=== PATIENT | male | born 1935 | race Caucasian/White ===

== ENCOUNTER 2019-06-21 13:06 | Inpatient (IN) | payer MEDICARE, OTHER ==
[~2019-06-21] VITALS: Ht 180.3 cm; Wt 81.8 kg
[~2019-06-21 13:06] MED LIST: DOCU-28 PO; NAPR-1154 PO
[2019-06-21 14:49] LABS: CLARITY,URINE CLEAR (Clear); COLOR,URINE STRAW (Yellow); GLUCOSE, URINE NEGATIVE (Neg); KETONES,URINE NEGATIVE (Neg); LEUKOCYTE ESTERASE ,URINE NEGATIVE (Neg); NITRITES, URINE NEGATIVE (Neg); OCCULT BLOOD,URINE TRACE-INTACT (Neg); PROTEIN,URINE 100 mg/dl (Neg); UROBILINOGEN,URINE 0.2 E.U/dL (0.2-1.0)
[2019-06-21 14:51] LABS: UA COLLECTION TYPE URINAL
[2019-06-21 14:58] LABS: BACTERIA,URINE NONE SEEN /HPF (Neg); RBC,URINE 0-2 /HPF (0-2); SQUAMOUS EPITHELIAL CELL,UR NONE SEEN /LPF (FEW); WBC,URINE NONE SEEN /HPF (0-4)
[2019-06-21 14:59] LABS: MUCUS STRANDS NONE SEEN /LPF (Neg)
[2019-06-21] MEDS ORDERED: normal saline 1000ML IV soln IVB ONE (15:55)
[2019-06-21 16:19] LABS: BASOPHILS # (AUTO) 0.1 X10'3 (0-0.2); BASOPHILS % (AUTO) 1.3 % (0-1); EOSINOPHILS # (AUTO) 0.2 X10'3 (0-0.9); HEMATOCRIT 43.8 % (42.0-52.0); LYMPHOCYTES # (AUTO) 2.4 X10'3 (1.1-4.8); LYMPHOCYTES % (AUTO) 34.3 % (21-51); MEAN CORPUSCULAR HEMOGLOBIN 31.5 PG (27.0-31.0); MEAN CORPUSCULAR HGB CONC 34.2 g/dL (33.0-36.5); MEAN PLATELET VOLUME 7.5 FL (7.4-10.4); MONOCYTES # (AUTO) 0.7 X10'3 (0-0.9); MONOCYTES % (AUTO) 9.7 % (2-12); NEUTROPHILS # (AUTO) 3.5 X10'3 (1.8-7.7); NEUTROPHILS % (AUTO) 51.7 % (42-75); PLATELET COUNT 314 X10'3 (140-440); RED BLOOD COUNT 4.76 X10'6 (4.70-6.10); RED CELL DISTRIBUTION WIDTH 12.9 % (11.5-14.5); WHITE BLOOD COUNT 6.9 X10'3 (4.5-11.0)
[2019-06-21] MEDS: diatr meglu/diatrizoate 30ml oral sol.-(3 dose) bottle PO SCH ×3 (16:19→17:47)
[2019-06-21 16:36] LABS: ALANINE AMINOTRANSFERASE 30 U/L (12-78); ALBUMIN 2.9 G/DL (3.4-5.0); ALBUMIN/GLOBULIN RATIO 0.8 (1.1-1.5); ALKALINE PHOSPHATASE 58 IU/L (46-116); ANION GAP 6 (8-16); ASPARTATE AMINO TRANSFERASE 24 U/L (10-37); BILIRUBIN,TOTAL 0.6 MG/DL (0.1-1.0); BLOOD UREA NITROGEN 18 MG/DL (7-18); BUN/CREATININE RATIO 14.6 (5.4-32.0); CALCIUM 8.7 MG/DL (8.5-10.1); CHLORIDE 105 MMOL/L (99-107); CREATININE 1.23 MG/DL (0.60-1.10); GLUCOSE 129 MG/DL (70-104); LIPASE 165 U/L (73-393); MAGNESIUM 1.9 MG/DL (1.5-2.4); POTASSIUM 3.9 MMOL/L (3.5-5.1); SODIUM 139 MMOL/L (135-145); TOTAL CARBON DIOXIDE 28.5 MMOL/L (24-32); TOTAL PROTEIN 6.4 G/DL (6.4-8.2); eGFR 56 ML/MIN
[2019-06-21] MEDS ORDERED: iohexol 300mg/ml 100ml inj. ONE (17:56)
[2019-06-21] MEDS ORDERED: GLIM2TAB3 PO (19:11)
[2019-06-21] MEDS ORDERED: OMEP-50 PO (19:11)
[2019-06-21] MEDS ORDERED: PEG 3350/Na sulf,bicarb,Cl/KCl oral sol 4 liter bottle PO ONE (20:05)
[2019-06-21] MEDS ORDERED: magnesium 2GM in 50ml NS 50 ML IV PRN (20:25)
[2019-06-21] MEDS ORDERED: HYDROcodone/acetaminophen 5mg/325mg tablet PO PRN (20:25)
[2019-06-21] MEDS ORDERED: mag hydrox/Alum hydrox/simeth 30ml oral suspension PO PRN (20:25)
[2019-06-21] MEDS ORDERED: magnesium hydroxide 30ml (MOM) UD suspension PO PRN (20:25)
[2019-06-21] MEDS ORDERED: potassium CL 10mEq/100ml bag 100 ML IV PRN ×2 (20:25)
[2019-06-21] MEDS ORDERED: ondansetron/PF 4mg/2ml inj IV PRN (20:25)
[2019-06-21] MEDS ORDERED: HYDROcodone/acetaminophen 10/325mg tab PO PRN (20:25)
[2019-06-21] MEDS ORDERED: acetaminophen 325mg tablet PO PRN ×2 (20:25)
[2019-06-21] MEDS ORDERED: magnesium Cl slow-release 64mg tablet PO PRN (20:25)
[2019-06-21] MEDS ORDERED: morphine 2 MG/ML inj. syringe IV PRN ×2 (20:25)
[2019-06-21] MEDS ORDERED: magnesium 4gm in 100ml NS 100 ML IV PRN (20:25)
[2019-06-21] MEDS ORDERED: potassium Cl 20 mEq SR tablet PO PRN ×2 (20:25)
[2019-06-21] MEDS: normal saline 1000ml 1,000 ML IV SCH (20:39)
[2019-06-21 21:36] VITALS: BP 128/83
--- NOTE | 2019-06-21 21:36 | NUR ---
pt arrived to floor, VSS, in no apparent distress. ambulated self from gurney to bed. Golytely at bedside. BLL, 2x rails up, call light in reach, will continue to monitor
[2019-06-22] VITALS (11 sets, daily range): BP systolic 103–158; BP diastolic 60–85
[2019-06-22] MEDS ORDERED: MESSAGE TO PHARMACY PO ONE (01:40)
[2019-06-22] MEDS ORDERED: glucagon, human recombinant 1mg kit SUBCUT PRN (01:40)
[2019-06-22] MEDS ORDERED: dextrose 50%-water 50ml dispensing syringe IV PRN ×2 (01:40)
[2019-06-22] MEDS ORDERED: dextrose ORAL solution 15 GM/59 ML bottle PO PRN ×2 (01:40)
[2019-06-22] MEDS ORDERED: insulin Lispro (HumaLOG) vial - multi-dose SQ SCH (01:40)
[2019-06-22] MEDS: normal saline 1000ml 1,000 ML IV SCH (06:22)
--- NOTE | 2019-06-22 06:25 | NUR ---
report given to MIREYA Conklin
[2019-06-22 07:14] LABS: BASOPHILS # (AUTO) 0.1 X10'3 (0-0.2); BASOPHILS % (AUTO) 1.1 % (0-1); EOSINOPHILS # (AUTO) 0.2 X10'3 (0-0.9); EOSINOPHILS % (AUTO) 3.8 % (0-6); HEMATOCRIT 40.1 % (42.0-52.0); HEMOGLOBIN 13.5 g/dl (14.0-17.9); LYMPHOCYTES # (AUTO) 2.4 X10'3 (1.1-4.8); MEAN CORPUSCULAR HEMOGLOBIN 31.4 PG (27.0-31.0); MEAN CORPUSCULAR HGB CONC 33.7 g/dL (33.0-36.5); MEAN CORPUSCULAR VOLUME 93.2 FL (78-98); MEAN PLATELET VOLUME 8.1 FL (7.4-10.4); MONOCYTES # (AUTO) 0.6 X10'3 (0-0.9); NEUTROPHILS # (AUTO) 2.5 X10'3 (1.8-7.7); NEUTROPHILS % (AUTO) 44.1 % (42-75); PLATELET COUNT 299 X10'3 (140-440); RED CELL DISTRIBUTION WIDTH 13.3 % (11.5-14.5); WHITE BLOOD COUNT 5.8 X10'3 (4.5-11.0)
[2019-06-22 07:28] LABS: ALBUMIN 2.4 G/DL (3.4-5.0); ANION GAP 8 (8-16); BLOOD UREA NITROGEN 15 MG/DL (7-18); BUN/CREATININE RATIO 14.9 (5.4-32.0); CALCIUM 7.9 MG/DL (8.5-10.1); CHLORIDE 110 MMOL/L (99-107); CREATININE 1.01 MG/DL (0.60-1.10); GLUCOSE 75 MG/DL (70-104); MAGNESIUM 1.8 MG/DL (1.5-2.4); POTASSIUM 3.8 MMOL/L (3.5-5.1); SODIUM 144 MMOL/L (135-145); TOTAL CARBON DIOXIDE 25.9 MMOL/L (24-32); eGFR 70 ML/MIN
--- NOTE | 2019-06-22 07:45 | NUR ---
Pt blood sugar 60's on AM check. 1/2 amp of dex given per protocol and pt blood sugar went up to 117. No distress or signs of low bs.
[2019-06-22] MEDS ORDERED: K and/or MAG REPLACEMENT MC SCH (08:00)
[2019-06-22] MEDS ORDERED: pantoprazole 40mg Tablet.DR PO SCH (08:00)
--- NOTE | 2019-06-22 09:43 | NUR ---
Pt gone to GI lab.
[2019-06-22] MEDS ORDERED: fentaNYL/PF 50MCG/1 ML 2ML syringe ONE (10:01)
[2019-06-22] MEDS ORDERED: MIDAZolam 5mg/5ml vial ONE (10:01)
--- NOTE | 2019-06-22 11:56 | NUR ---
pt back from gi lab, dr hair notified. she will come see patient and pt will possibly discharge.
--- NOTE | 2019-06-22 16:30 | NUR ---
Pt has gone home with . Alert, oriented and appropriate. States will meet him down in lobby, brought down by aide. coming from [place]. Pt instructed to f/u with pcp about prostate labs that were still pending. Pt appropriate for discharge per Dr Torres and Dr Ivey. IV taken out, no tele, all belongings taken from room, discharge and [facility] signed.
[2019-06-22] MEDS ORDERED: insulin glargine (Lantus) pen - multi-dose SQ SCH (21:00)
[2019-06-24] MEDS ORDERED: enoxaparin 40mg/0.4ml syringe SQ SCH (08:00)
[2019-06-24 21:58] LABS: % FREE PSA 40.9 % (.); PSA, FREE 2.17 ng/mL
== END 2019-06-22 16:30 | disposition home or self-care (01) | DRG 392 ==
LOC: ER 13:07 → ED HOLD 20:31 → SUR 3N 21:55
PROVIDERS: ADMIT Hospitalist; ATTEND Internal Medicine
PROC: BW211ZZ Computerized Tomography (CT Scan) of Abdomen and Pelvis using Low Osmolar Contrast (ICD-10-PCS; 2019-06-21)
PROC: 0DBM8ZZ Excision of Descending Colon, Via Natural or Artificial Opening Endoscopic (ICD-10-PCS; principal; 2019-06-22)
DX: K57.30 Diverticulosis of large intestine without perforation or abscess without bleeding (principal); E11.9 Type 2 diabetes mellitus without complications; I25.10 Atherosclerotic heart disease of native coronary artery without angina pectoris; K21.9 Gastro-esophageal reflux disease without esophagitis; K59.00 Constipation, unspecified; K64.9 Unspecified hemorrhoids; R33.9 Retention of urine, unspecified; E86.0 Dehydration; M19.90 Unspecified osteoarthritis, unspecified site; Z88.0 Allergy status to penicillin; Z90.49 Acquired absence of other specified parts of digestive tract; Z86.73 Personal history of transient ischemic attack (TIA), and cerebral infarction without residual deficits; Z88.8 Allergy status to other drugs, medicaments and biological substances
CPT/HCPCS: 36415; 45380; 74177; 80048; 80053; 81001; 82948; 83036; 83690; 83735; 84153; 84154; 85025; 87081; 88305; 99152; 99153; 99285; A4620; G0378; J1815; J2250; J3010; J7030; J7040; Q9963; Q9967

== ENCOUNTER 2020-02-20 13:32 | Emergency (ER) | payer MEDICARE, OTHER ==
[~2020-02-20] VITALS: Ht 180.3 cm; Wt 65.0 kg
[~2020-02-20 13:32] MED LIST changes: -DOCU-28 PO; +GLIM2TAB6 PO; -NAPR-1154 PO; +OMEP-50 PO
[2020-02-20 14:15] LABS: BASOPHILS # (AUTO) 0.1 X10'3 (0-0.2); BASOPHILS % (AUTO) 0.8 % (0-1); EOSINOPHILS # (AUTO) 0.2 X10'3 (0-0.9); EOSINOPHILS % (AUTO) 2.5 % (0-6); HEMATOCRIT 44.4 % (42.0-52.0); HEMOGLOBIN 15.1 g/dl (14.0-17.9); LYMPHOCYTES # (AUTO) 2.8 X10'3 (1.1-4.8); LYMPHOCYTES % (AUTO) 32.7 % (21-51); MEAN CORPUSCULAR HEMOGLOBIN 32.2 PG (27.0-31.0); MEAN CORPUSCULAR VOLUME 94.7 FL (78-98); MEAN PLATELET VOLUME 8.6 FL (7.4-10.4); MONOCYTES # (AUTO) 0.8 X10'3 (0-0.9); MONOCYTES % (AUTO) 9.8 % (2-12); NEUTROPHILS # (AUTO) 4.7 X10'3 (1.8-7.7); NEUTROPHILS % (AUTO) 54.2 % (42-75); PLATELET COUNT 297 X10'3 (140-440); RED BLOOD COUNT 4.69 X10'6 (4.70-6.10); RED CELL DISTRIBUTION WIDTH 13.3 % (11.5-14.5); WHITE BLOOD COUNT 8.6 X10'3 (4.5-11.0)
[2020-02-20 14:31] LABS: ALANINE AMINOTRANSFERASE 31 U/L (12-78); ALBUMIN 2.4 G/DL (3.4-5.0); ALBUMIN/GLOBULIN RATIO 0.7 (1.1-1.5); ALKALINE PHOSPHATASE 69 IU/L (46-116); ANION GAP 8 (8-16); ASPARTATE AMINO TRANSFERASE 27 U/L (10-37); BILIRUBIN,TOTAL 0.3 MG/DL (0.1-1.0); BLOOD UREA NITROGEN 23 MG/DL (7-18); BUN/CREATININE RATIO 18.9 (5.4-32.0); CALCIUM 8.4 MG/DL (8.5-10.1); CHLORIDE 100 MMOL/L (99-107); CREATININE 1.22 MG/DL (0.60-1.10); GLUCOSE 154 MG/DL (70-104); SODIUM 133 MMOL/L (135-145); TOTAL CARBON DIOXIDE 24.7 MMOL/L (24-32); TOTAL PROTEIN 5.8 G/DL (6.4-8.2); eGFR 56 ML/MIN
[2020-02-20 16:38] LABS: CLARITY,URINE CLOUDY (Clear); COLOR,URINE YELLOW (Yellow); GLUCOSE, URINE NEGATIVE (Neg); KETONES,URINE TRACE mg/dl (Neg); LEUKOCYTE ESTERASE ,URINE NEGATIVE (Neg); NITRITES, URINE NEGATIVE (Neg); OCCULT BLOOD,URINE NEGATIVE (Neg); PH,URINE 5.5 (4.8-8.0); PROTEIN,URINE >=300 mg/dl (Neg); UA COLLECTION TYPE VOIDED
[2020-02-20 16:48] LABS: HYALINE CASTS >30 /LPF (NEGATIVE)
[2020-02-20 16:49] LABS: MUCUS STRANDS MODERATE /LPF (Neg); SQUAMOUS EPITHELIAL CELL,UR FEW /LPF (FEW)
[2020-02-20 16:50] LABS: BACTERIA,URINE 1+ /HPF (Neg); FINE GRANULAR CAST 0-3 /LPF (NEGATIVE)
[2020-02-20 16:51] LABS: RBC,URINE 0-2 /HPF (0-2); WBC,URINE 0-4 /HPF (0-4)
[2020-02-20 17:13] VITALS: BP 161/73
== END 2020-02-20 17:15 | disposition home or self-care (01) ==
LOC: ER 13:33
DX: E86.0 Dehydration (principal); R53.1 Weakness; R53.83 Other fatigue; K21.9 Gastro-esophageal reflux disease without esophagitis; E11.9 Type 2 diabetes mellitus without complications; Z86.73 Personal history of transient ischemic attack (TIA), and cerebral infarction without residual deficits; Z90.49 Acquired absence of other specified parts of digestive tract; Z88.0 Allergy status to penicillin; Z79.899 Other long term (current) drug therapy
CPT/HCPCS: 36415; 71045; 80053; 81001; 84484; 85025; 93005; 99285

== ENCOUNTER 2023-07-21 20:49 | Inpatient (IN) | payer MEDICARE, MEDICAID ==
[~2023-07-21] VITALS: Ht 180.3 cm; Wt 66.0 kg
[~2023-07-21 20:49] MED LIST changes: +ASPI-1265 PO; +BUPR300T53 PO; +CARV-49 PO; +DAPA10TA PO; +FLO0.4C PO; +METF-436 PO; -OMEP-50 PO; +OMEP20CA16 PO; +SACU1TAB PO; +SIMV-341 PO
[2023-07-21] MEDS ORDERED: normal saline 1000ML IV soln IVB ONE (21:15)
[2023-07-21] MEDS: diatr meglu/diatrizoate 30ml oral sol.-(3 dose) bottle PO SCH ×3 (21:34→23:05)
[2023-07-21 21:44] LABS: BASOPHILS % (AUTO) 0.2 % (0-1); EOSINOPHILS % (AUTO) 0.1 % (0-6); HEMATOCRIT 25.7 % (42.0-52.0); HEMOGLOBIN 8.2 g/dl (14.0-17.9); LYMPHOCYTES # (AUTO) 1.3 X10'3 (1.1-4.8); LYMPHOCYTES % (AUTO) 8.9 % (21-51); MEAN CORPUSCULAR HEMOGLOBIN 27.4 PG (27.0-31.0); MEAN CORPUSCULAR HGB CONC 31.7 g/dL (33.0-36.5); MEAN CORPUSCULAR VOLUME 86.5 FL (78-98); MEAN PLATELET VOLUME 9.7 FL (7.4-10.4); MONOCYTES # (AUTO) 0.9 X10'3 (0-0.9); NEUTROPHILS # (AUTO) 12.1 X10'3 (1.8-7.7); NEUTROPHILS % (AUTO) 84.8 % (42-75); PLATELET COUNT 316 X10'3 (140-440); RED BLOOD COUNT 2.97 X10'6 (4.70-6.10); RED CELL DISTRIBUTION WIDTH 15.4 % (11.5-14.5); WHITE BLOOD COUNT 14.3 X10'3 (4.5-11.0)
[2023-07-21] MEDS ORDERED: cefepime 2g/NS 100ml ADVANTAGE 100 ML IV ONE (21:45)
[2023-07-21 21:59] LABS: ALANINE AMINOTRANSFERASE 29 U/L (12-78); ALBUMIN/GLOBULIN RATIO 0.7 (1.1-1.5); ALKALINE PHOSPHATASE 68 IU/L (46-116); ANION GAP 9 (8-16); ASPARTATE AMINO TRANSFERASE 81 U/L (10-37); BILIRUBIN,TOTAL 0.4 MG/DL (0.1-1.0); BLOOD UREA NITROGEN 9 MG/DL (7-18); CALCIUM 7.6 MG/DL (8.5-10.1); CHLORIDE 102 MMOL/L (99-107); CREATININE 0.82 MG/DL (0.60-1.10); GLUCOSE 118 MG/DL (70-104); POTASSIUM 3.8 MMOL/L (3.5-5.1); SODIUM 135 MMOL/L (135-145); TOTAL CARBON DIOXIDE 23.9 MMOL/L (24-32); TOTAL PROTEIN 4.8 G/DL (6.4-8.2); eCRCL 49 ML/MIN; eGFR 88 ML/MIN
[2023-07-21 22:04] LABS: LIPASE 19 U/L (16-77)
[2023-07-21] MEDS ORDERED: FLO0.4C PO (22:05)
[2023-07-21] MEDS ORDERED: aspirin 325mg tablet PO ONE (22:15)
[2023-07-21] MEDS ORDERED: heparin 10,000 units/1 ML INJ IV ONE (22:15)
[2023-07-21 22:36] LABS: APTT 29 SECONDS (22-32); INR 1.2 INR; PROTHROMBIN TIME 12.7 SECONDS (9.0-12.0)
[2023-07-21] MEDS ORDERED: iohexol 300mg/ml 100ml inj. ONE (22:39)
[2023-07-21] MEDS: heparin 25,000 UNIT/250ml bag 250 ML IV PRN (23:03)
[2023-07-21 23:53] LABS: BILIRUBIN,URINE NEGATIVE (Neg); CLARITY,URINE CLOUDY (Clear); COLOR,URINE YELLOW (Yellow); GLUCOSE, URINE 250 mg/dl (Neg); KETONES,URINE 15 mg/dl (Neg); LEUKOCYTE ESTERASE ,URINE MODERATE (Neg); NITRITES, URINE NEGATIVE (Neg); OCCULT BLOOD,URINE TRACE-INTACT (Neg); PROTEIN,URINE NEGATIVE (Neg); UROBILINOGEN,URINE 0.2 E.U/dL (0.2-1.0)
[2023-07-21 23:55] LABS: UA COLLECTION TYPE CLN CATCH MIDSTREAM
[2023-07-22 00:05] LABS: BACTERIA,URINE 2+ /HPF (Neg); MUCUS STRANDS NONE SEEN /LPF (Neg); SQUAMOUS EPITHELIAL CELL,UR FEW /LPF (FEW); TRANSITIONAL EPI CELLS,URINE FEW /HPF; WBC CLUMPS,URINE MODERATE /HPF (NEGATIVE); WBC,URINE 50-100 /HPF (0-4); YEAST MANY /HPF (NEGATIVE)
[2023-07-22] MEDS ORDERED: acetaminophen 650mg rectal suppository RC PRN (00:35)
[2023-07-22] MEDS ORDERED: HYDROcodone/acetaminophen 5mg/325mg tablet PO PRN (00:35)
[2023-07-22] MEDS ORDERED: acetaminophen 325mg tablet PO PRN ×2 (00:35)
[2023-07-22] MEDS ORDERED: morphine 2 MG/ML inj. syringe IV PRN (00:35)
[2023-07-22] MEDS ORDERED: ipratropium/albuterol 3ml nebule NEB PRN (00:35)
[2023-07-22] MEDS ORDERED: mag hydrox/Alum hydrox/simeth 30ml oral suspension PO PRN (00:35)
[2023-07-22] MEDS ORDERED: magnesium hydroxide 30ml (MOM) UD suspension PO PRN (00:35)
[2023-07-22] MEDS ORDERED: diphenhydrAMINE 50 mg/ml inj IV PRN (00:35)
[2023-07-22] MEDS ORDERED: bisacodyl 10mg suppository rectal RC PRN (00:35)
[2023-07-22] MEDS ORDERED: diphenhydrAMINE 25mg capsule PO PRN (00:35)
[2023-07-22] MEDS ORDERED: ondansetron/PF 4mg/2ml inj IV PRN (00:35)
[2023-07-22] MEDS ORDERED: ondansetron 4mg rapidly disintigrating tab PO PRN (00:35)
[2023-07-22] MEDS ORDERED: DEXTROSE 15 GM of carb/4 tabs (each vial/BOTTLE has 4 tablets) PO PRN ×2 (00:40)
[2023-07-22] MEDS ORDERED: MESSAGE TO PHARMACY PO ONE (00:40)
[2023-07-22] MEDS ORDERED: dextrose 50%-water 50ml dispensing syringe IV PRN ×2 (00:40)
[2023-07-22] MEDS ORDERED: glucagon, human recombinant 1mg kit SUBCUT PRN (00:40)
[2023-07-22] MEDS: normal saline 1000ml 1,000 ML IV SCH ×3 (00:49→20:35)
[2023-07-22 01:07] LABS: D-DIMER 5.13 MG/L FEU (0-0.50)
[2023-07-22 01:11] LABS: CREATINE KINASE 282 U/L (39-308); THYROID STIMULATING HORMONE 1.12 ulU/ml (0.34-4.50)
[2023-07-22 01:20] LABS: HEMOGLOBIN A1C 6.4 % (4.5-6.2)
[2023-07-22 01:31] LABS: MAGNESIUM 1.5 MG/DL (1.5-2.4); PHOSPHORUS 3.4 MG/DL (2.3-4.5)
[2023-07-22 01:52] LABS: PRO BRAIN NATRIURETIC PEPTIDE > 30000 PG/ML (0-450)
[2023-07-22] MEDS: heparin 10,000 units/1 ML INJ IV PRN ×2 (06:12→16:01)
[2023-07-22] MEDS: levoFLOXACIN-Levaquin 500mg/D5 100 ML IV SCH (07:44)
[2023-07-22] MEDS: docusate sod 100mg capsule PO SCH ×2 (07:44→19:29)
[2023-07-22] MEDS: aspirin 81mg, enteric-coated 1 TAB TABLET.DR PO SCH (07:46)
[2023-07-22 08:47] LABS: BASOPHILS # (AUTO) 0.1 X10'3 (0-0.2); BASOPHILS % (AUTO) 0.6 % (0-1); EOSINOPHILS # (AUTO) 0.1 X10'3 (0-0.9); EOSINOPHILS % (AUTO) 0.7 % (0-6); HEMATOCRIT 24.6 % (42.0-52.0); HEMOGLOBIN 7.8 g/dl (14.0-17.9); LYMPHOCYTES # (AUTO) 1.6 X10'3 (1.1-4.8); LYMPHOCYTES % (AUTO) 13.5 % (21-51); MEAN CORPUSCULAR HEMOGLOBIN 27.4 PG (27.0-31.0); MEAN CORPUSCULAR HGB CONC 31.6 g/dL (33.0-36.5); MEAN CORPUSCULAR VOLUME 86.7 FL (78-98); MEAN PLATELET VOLUME 10.3 FL (7.4-10.4); MONOCYTES # (AUTO) 0.9 X10'3 (0-0.9); MONOCYTES % (AUTO) 7.6 % (2-12); NEUTROPHILS # (AUTO) 9.1 X10'3 (1.8-7.7); NEUTROPHILS % (AUTO) 77.6 % (42-75); PLATELET COUNT 287 X10'3 (140-440); RED BLOOD COUNT 2.84 X10'6 (4.70-6.10); RED CELL DISTRIBUTION WIDTH 15.1 % (11.5-14.5); WHITE BLOOD COUNT 11.7 X10'3 (4.5-11.0)
[2023-07-22] MEDS ORDERED: vancomycin/NS 1 GM ADD-VANTAGE 250 ML X 1 DOSE IV ONE (09:40)
[2023-07-22 12:18] VITALS: BP 122/77; PULSE 96; RESP 17; TEMP 97.6; O2SAT 96
[2023-07-22] MEDS: furosemide 40mg/4ml inj IV SCH ×2 (12:54→19:29)
[2023-07-22 15:00] VITALS: BP 135/63; PULSE 99; RESP 18; TEMP 97.7; O2SAT 96
[2023-07-22 15:17] VITALS: PULSE 88; RESP 19; O2SAT 92
[2023-07-22] MEDS: carvedilol 6.25mg tablet PO SCH (19:29)
[2023-07-22 20:00] VITALS: RESP 18; O2SAT 96
[2023-07-22 20:44] VITALS: PULSE 80; RESP 18; O2SAT 92
[2023-07-22] MEDS ORDERED: temazepam 15mg capsule PO PRN (21:00)
[2023-07-22 22:00] VITALS: BP 118/63; PULSE 95; RESP 18; TEMP 98; O2SAT 95
[2023-07-23] VITALS (11 sets, daily range): BP systolic 85–108; BP diastolic 51–68; PULSE 74–101; RESP 14–22; TEMP 97.3–98.1; O2SAT 92–96
[2023-07-23] MEDS: heparin 25,000 UNIT/250ml bag 250 ML IV PRN (02:19)
[2023-07-23 06:12] LABS: BASOPHILS # (AUTO) 0.1 X10'3 (0-0.2); BASOPHILS % (AUTO) 0.7 % (0-1); EOSINOPHILS # (AUTO) 0.1 X10'3 (0-0.9); EOSINOPHILS % (AUTO) 1.1 % (0-6); HEMATOCRIT 25.8 % (42.0-52.0); HEMOGLOBIN 8.5 g/dl (14.0-17.9); LYMPHOCYTES % (AUTO) 19.6 % (21-51); MEAN CORPUSCULAR HEMOGLOBIN 28.2 PG (27.0-31.0); MEAN CORPUSCULAR HGB CONC 32.7 g/dL (33.0-36.5); MEAN PLATELET VOLUME 9.7 FL (7.4-10.4); MONOCYTES # (AUTO) 0.7 X10'3 (0-0.9); MONOCYTES % (AUTO) 6.8 % (2-12); NEUTROPHILS # (AUTO) 7.4 X10'3 (1.8-7.7); NEUTROPHILS % (AUTO) 71.8 % (42-75); PLATELET COUNT 433 X10'3 (140-440); RED CELL DISTRIBUTION WIDTH 15.3 % (11.5-14.5); WHITE BLOOD COUNT 10.3 X10'3 (4.5-11.0)
[2023-07-23 06:28] LABS: ALANINE AMINOTRANSFERASE 31 U/L (12-78); ALBUMIN 1.9 G/DL (3.4-5.0); ALBUMIN/GLOBULIN RATIO 0.6 (1.1-1.5); ALKALINE PHOSPHATASE 77 IU/L (46-116); ANION GAP 11 (8-16); ASPARTATE AMINO TRANSFERASE 60 U/L (10-37); BILIRUBIN,TOTAL 0.3 MG/DL (0.1-1.0); BLOOD UREA NITROGEN 13 MG/DL (7-18); BUN/CREATININE RATIO 13.3 (10.0-20.0); CALCIUM 7.7 MG/DL (8.5-10.1); CHLORIDE 103 MMOL/L (99-107); CHOL/HDL RATIO 2.3 (0.00-4.99); CHOLESTEROL 97 MG/DL (0-200); CREATININE 0.98 MG/DL (0.60-1.10); GLUCOSE 131 MG/DL (70-104); HDL CHOLESTEROL 43 MG/DL (35-60); LDL CHOLESTEROL 45 MG/DL (50-100); POTASSIUM 3.1 MMOL/L (3.5-5.1); SODIUM 136 MMOL/L (135-145); TOTAL CARBON DIOXIDE 21.6 MMOL/L (24-32); TRIGLYCERIDES 81 MG/DL (20-135); eCRCL 48 ML/MIN; eGFR 72 ML/MIN
[2023-07-23] MEDS: heparin 10,000 units/1 ML INJ IV PRN (06:33)
[2023-07-23] MEDS: docusate sod 100mg capsule PO SCH ×2 (06:56→19:03)
[2023-07-23] MEDS ORDERED: potassium Cl 40MEQ/1/2NS 520ml 520 ML IV PRN ×2 (07:30)
[2023-07-23] MEDS ORDERED: potassium Cl 20 mEq SR tablet PO PRN (07:30)
[2023-07-23] MEDS: furosemide 40mg/4ml inj IV SCH (07:42)
[2023-07-23] MEDS: spironolactone 25 MG tablet PO SCH (07:43)
[2023-07-23] MEDS: buPROPion SR 150mg tablet PO SCH ×2 (07:44→19:10)
[2023-07-23] MEDS: aspirin 81mg, enteric-coated 1 TAB TABLET.DR PO SCH (07:44)
[2023-07-23] MEDS: potassium Cl 20 mEq SR tablet PO PRN ×3 (07:44→17:05)
[2023-07-23] MEDS: EMPAGLIFLOZIN 10 MG TABLET PO SCH (07:44)
[2023-07-23] MEDS: carvedilol 6.25mg tablet PO SCH ×2 (07:44→19:10)
[2023-07-23] MEDS: tamsulosin 0.4mg capsule PO SCH (07:44)
[2023-07-23] MEDS: levoFLOXACIN-Levaquin 500mg/D5 100 ML IV SCH (07:45)
[2023-07-23] MEDS: K and/or MAG REPLACEMENT MC SCH ×2 (07:50→19:02)
[2023-07-23] MEDS ORDERED: atorvastatin 10mg tablet PO SCH (08:00)
[2023-07-23] MEDS ORDERED: LACTOSE-REDUCED FOOD 237ML LIQUID PO SCH (17:30)
[2023-07-23] MEDS: furosemide 20 MG/2 ML vial IV SCH (19:10)
[2023-07-23] MEDS: heparin, porcine 5000 units/ml vial SQ SCH (19:10)
[2023-07-23] MEDS: sacubitril/valsartan 24mg-26mg tablet PO SCH (19:10)
[2023-07-23] MEDS: insulin Lispro (HumaLOG) vial - multi-dose SQ SCH ×2 (19:16→21:01)
[2023-07-24] VITALS (8 sets, daily range): BP systolic 80–107; BP diastolic 46–59; PULSE 76–91; RESP 18–21; TEMP 97.1–98.2; O2SAT 93–97
[2023-07-24] MEDS ORDERED: morphine 2 MG/ML inj. syringe IV ONE (06:05)
[2023-07-24] MEDS: nitroGLYCERIN 0.4mg SUBLingual tab SL PRN ×3 (06:10→06:42)
[2023-07-24] MEDS ORDERED: magnesium 2GM in 50ml NS 50 ML IV ONE (06:25)
[2023-07-24 07:22] LABS: ALANINE AMINOTRANSFERASE 37 U/L (12-78); ALBUMIN/GLOBULIN RATIO 0.6 (1.1-1.5); ALKALINE PHOSPHATASE 78 IU/L (46-116); ANION GAP 11 (8-16); ASPARTATE AMINO TRANSFERASE 69 U/L (10-37); BILIRUBIN,TOTAL 0.3 MG/DL (0.1-1.0); BLOOD UREA NITROGEN 21 MG/DL (7-18); BUN/CREATININE RATIO 18.1 (10.0-20.0); CALCIUM 8.3 MG/DL (8.5-10.1); CHLORIDE 104 MMOL/L (99-107); CREATININE 1.16 MG/DL (0.60-1.10); GLUCOSE 150 MG/DL (70-104); POTASSIUM 4.6 MMOL/L (3.5-5.1); SODIUM 136 MMOL/L (135-145); TOTAL CARBON DIOXIDE 21.4 MMOL/L (24-32); TOTAL PROTEIN 5.2 G/DL (6.4-8.2); eCRCL 40 ML/MIN; eGFR 59 ML/MIN
[2023-07-24 07:25] LABS: CREATINE KINASE 163 U/L (39-308); MAGNESIUM 1.6 MG/DL (1.5-2.4); PHOSPHORUS 3.5 MG/DL (2.3-4.5)
[2023-07-24] MEDS: sacubitril/valsartan 24mg-26mg tablet PO SCH (08:00)
[2023-07-24] MEDS ORDERED: atorvastatin 20mg tablet PO SCH (08:00)
[2023-07-24] MEDS: K and/or MAG REPLACEMENT MC SCH (08:00)
[2023-07-24] MEDS: tamsulosin 0.4mg capsule PO SCH (08:00)
[2023-07-24] MEDS ORDERED: MULTIVIT-MIN/FERROUS GLUCONATE 9 MG/15 ML LIQUID PO SCH (08:00)
[2023-07-24] MEDS: aspirin 81mg, enteric-coated 1 TAB TABLET.DR PO SCH (08:02)
[2023-07-24] MEDS: buPROPion SR 150mg tablet PO SCH (08:02)
[2023-07-24] MEDS: docusate sod 100mg capsule PO SCH (08:02)
[2023-07-24] MEDS: EMPAGLIFLOZIN 10 MG TABLET PO SCH (08:02)
[2023-07-24] MEDS: furosemide 20 MG/2 ML vial IV SCH (08:03)
[2023-07-24] MEDS: spironolactone 25 MG tablet PO SCH (08:30)
[2023-07-24] MEDS: carvedilol 6.25mg tablet PO SCH (09:00)
[2023-07-24] MEDS: heparin, porcine 5000 units/ml vial SQ SCH (09:00)
[2023-07-24] MEDS ORDERED: levoFLOXACIN 250mg tablet PO SCH (11:00)
[2023-07-24] MEDS ORDERED: normal saline 250ml IV soln 250 ML IV ONE (11:20)
[2023-07-24] MEDS ORDERED: normal saline 500ml IV soln 500 ML IV ONE ×2 (11:35→13:40)
[2023-07-24] MEDS ORDERED: midazolam 1 mg/ML 2ml injection ONE (13:37)
[2023-07-24] MEDS ORDERED: heparin 1,000unit/ml 10ml vial 10 ML ONE (13:37)
[2023-07-24] MEDS ORDERED: iohexol 350MG/ML 100ml bottle IV ONE ×4 (13:37→15:08)
[2023-07-24] MEDS ORDERED: LIDOcaine 1% (10mg/ml) 2ml vial ONE (13:37)
[2023-07-24] MEDS ORDERED: verapamil 2.5 mg/ml inj IV ONE (13:37)
[2023-07-24] MEDS ORDERED: fentaNYL/PF 50MCG/1 ML 2ML syringe ONE (13:37)
[2023-07-24] MEDS ORDERED: nitroGLYCERIN 500mcg/5mL D5W 5 ML IV ONE (13:39)
[2023-07-24] MEDS ORDERED: LIDOcaine 1% 30ml preserv. free vial ONE (14:36)
[2023-07-24] MEDS ORDERED: NORepinephrine 1 mg/ml inj IV ONE (14:50)
[2023-07-24] MEDS ORDERED: heparin 1,000 UNITS/NS 500ml 500 ML ONE (14:52)
[2023-07-24] MEDS ORDERED: phenylephrine 10mg/ml inj. -priapism dosing ONE (15:41)
[2023-07-24] MEDS ORDERED: DOBUTamine-DoBUTrex 500mg/D5W 250 ML IV ONE (15:43)
[2023-07-24] MEDS ORDERED: sodium bicarbonate (8.4%) 1 mEq/ml syringe ONE (15:45)
== END 2023-07-24 19:53 | DRG 270 ==
LOC: ER 20:50 → ED HOLD 07-22 00:39 → PCU 3S 07-22 12:10 → CICU 2S 07-24 16:40
PROVIDERS: ADMIT Family Medicine; ATTEND Internal Medicine
PROC: 027035Z Dilation of Coronary Artery, One Artery with Two Drug-eluting Intraluminal Devices, Percutaneous Approach (ICD-10-PCS; principal; 2023-07-24)
PROC: 4A023N7 Measurement of Cardiac Sampling and Pressure, Left Heart, Percutaneous Approach (ICD-10-PCS; 2023-07-24)
PROC: B2111ZZ Fluoroscopy of Multiple Coronary Arteries using Low Osmolar Contrast (ICD-10-PCS; 2023-07-24)
PROC: BW211ZZ Computerized Tomography (CT Scan) of Abdomen and Pelvis using Low Osmolar Contrast (ICD-10-PCS; 2023-07-24)
PROC: 5A02210 Assistance with Cardiac Output using Balloon Pump, Continuous (ICD-10-PCS; 2023-07-24)
DX: I21.4 Non-ST elevation (NSTEMI) myocardial infarction (principal); I50.23 Acute on chronic systolic (congestive) heart failure; E46 Unspecified protein-calorie malnutrition; K56.7 Ileus, unspecified; N39.0 Urinary tract infection, site not specified; Z68.1 Body mass index [BMI] 19.9 or less, adult; I11.0 Hypertensive heart disease with heart failure; E11.65 Type 2 diabetes mellitus with hyperglycemia; D64.9 Anemia, unspecified; E78.00 Pure hypercholesterolemia, unspecified; I25.10 Atherosclerotic heart disease of native coronary artery without angina pectoris; N40.0 Benign prostatic hyperplasia without lower urinary tract symptoms; I45.10 Unspecified right bundle-branch block; E86.1 Hypovolemia; E78.5 Hyperlipidemia, unspecified; Z79.82 Long term (current) use of aspirin; Z90.49 Acquired absence of other specified parts of digestive tract; Z88.0 Allergy status to penicillin; Z86.73 Personal history of transient ischemic attack (TIA), and cerebral infarction without residual deficits; Z79.899 Other long term (current) drug therapy
CPT/HCPCS: 33210; 33967; 92950; 93306; 93458; 96361; 96366; 96375; 99285; C9600; 36415; 71045; 74177; 80053; 80061; 81001; 82550; 82948; 83036; 83605; 83690; 83735; 83880; 84100; 84443; 84484; 85025; 85379; 85610; 85730; 87040; 87081; 87088; 94760; 97161; 97530; 97535; A6213; A6250; A6258; C1725; C1751; C1756; C1769; C1874; C1894; G0378; J0692; J1250; J1644; J1815; J1940; J1956; J2250; J2270; J2370; J3010; J3370; J3475; J3490; J7030; J7040; J7050; Q9963; Q9967